=== PATIENT | female | born 2000 | race Caucasian/White ===

== ENCOUNTER 2024-11-29 08:59 | Emergency (ER) | payer BC, SELFPAY ==
[2024-11-29 09:00] VITALS: BP 117/74
[2024-11-29 09:51] LABS: HCG, Urine Qualitative Screen Negative
--- NOTE | 2024-11-29 11:14 | ED.GENMED ---
History of Present Illness
General
Chief Complaint: Head Injury
Source: patient
Time Seen by Provider: 11/29/24 11:05
History of Present Illness
History of Present Illness:
24-year-old female with no significant past medical history presents to the ER for evaluation after she struck her head on a metal beam this past [place] and is continuously having headache, nausea, photo and phono phobic and continued fatigue.
Family was concerned given the persistent symptoms so decided bring patient to the ER for further evaluation. Denies any history of previous head injury. Has been taking Motrin/Tylenol for headache as needed. No other symptoms presently. There
was no reported loss of consciousness or vomiting following the immediate head injury.
Past History
Past History
ED Past Medical History: None
ED Past Surgical History: None
Social History
Tobacco: Non-smoker
Alcohol: Occasional
Drug: None
Personal: Single
Living: with family
Review of Systems
Review of Systems
All Other Systems: ROS reviewed and negative except as documented in HPI and ROS
Phy Exam
Physical Exam
Physical Exam:
GENERAL: Alert , in no apparent distress
EYE: conjunctiva clear, pupils 4 mm, PERRL
Head: Normocephalic atraumatic
NECK: Supple,
ENT: mmm.
LUNGS: no acute respiratory distress
NEUROLOGICAL: Alert and oriented, ambulates with steady gait
SKIN: Warm and dry, skin intact.
MUSCULOSKELETAL: well perfused.
PSYCH: Normal and appropriate interaction.
Scores
Heart Failure Risk
Heart Failure Risk Score: Not Applicable
Heart Score for Chest Pain Patients
STEMI patient?: Not applicable
Withdrawal Assessment of Alcohol
Withdrawal Assessment Completed?: Not applicable
Course
Orders/Labs/Results
Orders:
Orders
11/29/24 09:03
CT Head W/o Iv Contrast Urgent
Comment:
Reason For Exam: fall, nausea, light/noise senstive
Test Result ONCE
11/29/24 09:24
HCG, Urine Qualitative Screen Urgent
Date Specimen was Collected: 11/29/24
Time Specimen was Collected: 09:03
Vital Signs
Initial and Last Documented VS:
Initial Vital Signs
Temp Pulse Resp BP Pulse Ox
98.3 F 86 16 117/74 98
11/29/24 09:00 11/29/24 09:00 11/29/24 09:00 11/29/24 09:00 11/29/24 09:00
Last Documented Vital Signs
Temp Pulse Resp BP Pulse Ox
98.3 F 86 16 117/74 98
11/29/24 09:00 11/29/24 09:00 11/29/24 09:00 11/29/24 09:00 11/29/24 09:00
MDM/Problems Addressed
Differential Diagnosis Includes:
Concussion, contusion, less concern for intracranial bleeding or calvarial fracture
MDM/Problems Addressed:
24-year-old female presenting the ER for evaluation of head injury. Concussive like symptoms since the resulting head injury. Hemodynamically stable and neurologically intact on arrival to the ER. Will check head CT. Anticipate discharge home
*Radiology
Radiology exam reviewed: radiology read reviewed
*Pulse Oximetry
Patient hypoxic: no
*Critical Care Note
Total Time (30-74mins, 75-104mins- exclusive of procedures): Not Applicable
Patient Management
Escalation/DeEscalation of care consider admission/obs:
Head CT without any acute findings. Encourage patient to closely follow-up with primary care provider and if symptoms persist may need to go see neurology. Management of concussion discussed. Patient and family expressed understanding. Stable
for discharge home.
ED Attending Note
-
Portions of this chart may have been created with voice recognition software.� Occasional wrong word or��sound alike� substitutions may have occurred due to the inherent limitations of voice recognition software.
Discharge Plan
Departure
Patient Disposition: Home (Routine Discharge)
Date of Disposition: 11/29/24
Time of Disposition: 11:14
Patient with high blood pressure during this ER visit?: No
Discharge Problem:
Head injury
Instructions: Concussion, Adult (DC)
Interventions
Interventions:
ED- Fall Risk Assessment Last Done: 11/29/24 12:03
*Nursing Disposition Last Done: 11/29/24 12:03
ED- Neurological Assessment Last Done: 11/29/24 11:53
ED-Skin Assessment Last Done: 11/29/24 11:53
Discharge Date and Time
Discharge Date/Time: 11/29/24 12:03
Print Language: FRENCH
== END 2024-11-29 12:03 | disposition home or self-care (01) ==
LOC: EMR 08:59
PROVIDERS: Emergency Medicine; EMERGENCY PHYSICIAN Emergency Medicine
DX: S09.90XA Unspecified injury of head, initial encounter (principal); W22.8XXA Striking against or struck by other objects, initial encounter
CPT/HCPCS: 99284; 70450; 81025